=== PATIENT | male | born 1995 | race Caucasian/White ===

== ENCOUNTER 2023-07-08 06:31 | Emergency (ER) | payer BC ==
[2023-07-08 06:48] VITALS: BP 154/92; PULSE 65; RESP 18; TEMP 97.3
--- NOTE | 2023-07-08 06:56 | ED ---
Male Urogenital HPI - General Chief complaint: Urogenital Stated complaint: Testicular Pain Time Seen by Provider: 07/08/23 06:36 Source: patient, RN notes reviewed Mode of arrival: ambulatory Limitations: no limitations - History of Present Illness Initial comments: This is a 27 year old male who presents to the emergency department for left sided testicular pain. This began at 0130 this morning and was severe initially. States that he had a testicular torsion several years ago in 2013 requiring surgery, and since then the left testicle seems to twist or move out of place. This tends to occur 1-2 times a year. This morning the pain lasted for about 5 hours, however he feels like he was able to untwist this and on his drive here the pain began to improve. He does still have some soreness and he feels like this episode of pain lasted longer than it typically does, and given his history, he would like to have this evaluated. Denies any urinary symptoms or concern for STD exposure. MD Complaint: testicle pain - Related Data Home Medications Medication Instructions Recorded Confirmed No Known Home Medications 06/24/14 06/24/14 Allergies Allergy/AdvReac Type Severity Reaction Status Date / Time No Known Allergies Allergy Verified 07/08/23 06:35 Review of Systems ROS Statement: Those systems with pertinent positive or pertinent negative responses have been documented in the HPI. ROS Other: All systems not noted in ROS Statement are negative. Past Medical History Past Medical History: No Reported History Additional Past Medical History / Comment(s): Testicular torsion History of Any Multi-Drug Resistant Organisms: None Reported Additional Past Surgical History / Comment(s): facial - nose repair Past Psychological History: No Psychological Hx Reported Smoking Status: Never smoker Past Alcohol Use History: Occasional Past Drug Use History: None Reported General Exam Limitations: no limitations General appearance: alert, in no apparent distress Head exam: Present: atraumatic, normocephalic, normal inspection Respiratory exam: Present: normal lung sounds bilaterally. Absent: respiratory distress, wheezes, rales, rhonchi, stridor Cardiovascular Exam: Present: regular rate, normal rhythm, normal heart sounds. Absent: systolic murmur, diastolic murmur, rubs, gallop, clicks GI/Abdominal exam: Present: soft, normal bowel sounds. Absent: distended, tenderness, guarding, rebound, rigid exam: Present: normal inspection. Absent: testicular tenderness, urethral discharge, scrotal swelling Expanded exam: Cremasteric Reflex Present: Left, Right Neurological exam: Present: alert, oriented X3, CN II-XII intact Psychiatric exam: Present: normal affect, normal mood Skin exam: Present: warm, dry, intact, normal color. Absent: rash Course Vital Signs 07/08/23 06:32 Temperature 97.3 F L Pulse Rate 65 Respiratory 18 Rate Blood Pressure 154/92 O2 Sat by Pulse 100 Oximetry Medical Decision Making - Medical Decision Making This is a 27 year old male who presents to the emergency department for testicular pain. Was pt. sent in by a medical professional or institution? @ -No Did you speak to anyone other than the patient for history? @ -No Did you review nursing and triage notes? @ -Yes, and I agree, it is accurate with regards to the patient's symptoms. Were old charts reviewed? @ -No Differential Diagnosis? @ -Differential Testicular Pain: Torsion, epididymitis, orchitis, UTI, ureteral calculus, this is not meant to be an all-inclusive list. EKG interpreted by me (3pts min.)? @ -Not obtained X-rays interpreted by me (1pt min.)? @ -Not obtained CT interpreted by me (1pt min.)? @ -Not obtained U/S interpreted by me (1pt. min.)? @ -Scrotal US obtained. My interpretation identifies no evidence of testicular torsion. What testing was considered but not performed? (CT, X-rays, U/S, labs)? Why? @ -None What meds were considered but not given? Why? @ -None Did you discuss the management of the patient with other professionals? @ -No Did you reconcile home meds? @ -No Was smoking cessation discussed for >3mins.? @ -No Was critical care preformed (if so, how long)? @ -No Were there social determinants of health that impacted care today? How? (Homelessness, low income, unemployed, alcoholism, drug addiction, transportation, low edu. Level, literacy, decrease access to med. care, [facility], rehab)? @ -No Was there de-escalation of care discussed even if they declined? (Discuss DNR or withdrawal of care, Hospice)? @ -No What co-morbidities impacted this encounter? (DM, HTN, Smoking, COPD, CAD, Cancer, CVA, Hep., AIDS, mental health diagnosis, sleep apnea, morbid obesity)? @ -None Was patient admitted / discharged? @ -Discharged. Urinalysis negative for signs of infection. Scrotal ultrasound obtained revealing no evidence of testicular torsion. He was found to have bilateral epididymal cysts and a left-sided hydrocele, both of which he states he has had before. Physical exam revealed no irregularities. Discussed with patient that he should be reevaluated by urology given that this continues to recur. He is given information for local urology follow-up for further evaluation. Otherwise advised ibuprofen and Tylenol as needed for pain relief. Patient discharged home in stable condition. Undiagnosed new problem with uncertain prognosis? @ -None Drug Therapy requiring intensive monitoring for toxicity (Heparin, Nitro, Insulin, Cardizem)? @ -None Were any procedures done? @ -None Diagnosis/symptom? @ -Left testicular pain Acute, or Chronic, or Acute on Chronic? @ -Acute Uncomplicated (without systemic symptoms) or Complicated (systemic symptoms)? @ -Uncomplicated Side effects of treatment? @ -None Exacerbation, Progression, or Severe Exacerbation] @ -Not applicable Poses a threat to life or bodily function? @ -No Return precautions reviewed in depth, the patient is instructed to return to the emergency department with any new, worsening, or concerning symptoms. Patient verbalized understanding. This case was discussed in detail with the attending ED physician, Dr. Heath. Presentation, findings, and treatment plan discussed in detail as well. - Lab Data Lab Results 07/08/23 Range/Units 06:46 Urine Color Colorless Urine Appearance Clear (Clear) Urine pH 6.0 (5.0-8.0) Ur Specific [place] 1.010 (1.001-1.035) Urine Protein Negative (Negative) Urine Glucose (UA) Negative (Negative) Urine Ketones Negative (Negative) Urine Blood Negative (Negative) Urine Nitrite Negative (Negative) Urine Bilirubin Negative (Negative) Urine Urobilinogen 0.2 (<2.0) mg/dL Ur Leukocyte Esterase Negative (Negative) - Radiology Data Radiology results: report reviewed, image reviewed Disposition Clinical Impression: Left testicular pain, History of torsion of testis Disposition: HOME SELF-CARE Instructions (If sedation given, give patient instructions): Testicle Pain (ED), Scrotal Pain (ED) Additional Instructions: Return to the emergency department with any new, worsening, or concerning symptoms. Alternate with ibuprofen and Tylenol as needed for pain relief. Contact urology as listed below for a follow-up appointment regarding the recurrent symptoms. Is patient prescribed a controlled substance at d/c from ED?: No Referrals: None,Stated [Primary Care Provider] - 1-2 days Job Medellin MD [STAFF PHYSICIAN] - 1-2 days
[2023-07-08 07:17] LABS: Appearance,Urine Clear (Clear); Color,Urine Colorless
[2023-07-08 07:23] LABS: Bilirubin,Urine Negative (Negative); Blood,Urine Negative (Negative); Glucose,Urine (UA) Negative (Negative); Ketones,Urine Negative (Negative); Leukocyte Esterase,Urine Negative (Negative); Nitrite,Urine Negative (Negative); Protein,Urine Negative (Negative); Urobilinogen,Urine 0.2 mg/dL (<2.0)
--- NOTE | 2023-07-08 07:49 | US ---
EXAMINATION TYPE: US scrotum with doppler. Grayscale and color Doppler Duplex imaging performed of thania alvarez scrotum. DATE OF EXAM: 07/08/2023 COMPARISON: NONE CLINICAL INDICATION: Male, 27 years old with history of Left testicular pain; Left testicle pain, int ermittent since 2013. History of torsion 2013. Left testicle felt twisted this morning EXAM MEASUREMENTS: TESTICLES: Right Testicle: 4.7 x 2.3 x 3.4 cm Left Testicle: 5.0 x 2.5 x 3.7 cm EPIDIDYMIS HEAD: Right Epididymis: 1.3 cm Left Epididymis: 1.3 cm Doppler performed to assess for testicular vascularity; good bilateral color flow and waveforms are s een. There is no evidence of testicular torsion. Presence of hydroceles: small fluid collection medial to left testicle = 3.1 x 0.7 x 1.5cm Presence of varicoceles: no Cystic area right epididymis = 0.8 x 0.7 x 1.0cm and 1.3 x 1.0 x 1.4cm on the left epididymis IMPRESSION: 1. Bilateral epididymal cysts
== END 2023-07-08 08:30 | disposition home or self-care (01) ==
LOC: EC 06:31
DX: N50.812 Left testicular pain (principal); Z87.718 Personal history of other specified (corrected) congenital malformations of genitourinary system
CPT/HCPCS: 76870; 81003; 93975; 99284